=== PATIENT | female | born 1980 | race Caucasian/White ===

== ENCOUNTER 2019-12-16 10:18 | Outpatient (CLI) | payer OTHER, MEDICAID, SELFPAY ==
--- NOTE | ~2019-12-16 | XR_ITS ---
XR abdomen/kub 1V DATE: 12/16/2019 10:44 INDICATION: Left kidney stone follow-up TECHNIQUE: AP projection, 2 views COMPARISON: 07/09/2018 KUB FINDINGS: Again noted is a pinpoint faint calcification overlying the mid left kidney. This appears s table since 07/09/2018. No visceromegaly is evident. No bowel obstruction. IMPRESSION: Pinpoint nonobstructing mid left renal calculus Reviewed, dictated and finalized at [facility]. Reviewed, dictated and finalized at [facility].
== END 2019-12-16 10:19 | disposition home or self-care (01) ==
LOC: ANHIMG 10:27
PROVIDERS: Visit Provider Nurse Practitioner Adult Health
DX: N20.0 Calculus of kidney (principal)
CPT/HCPCS: 74018

== ENCOUNTER 2021-07-21 09:46 | Outpatient (CLI) | payer BC, MEDICAID, SELFPAY ==
--- NOTE | ~2021-07-21 | XR_ITS ---
XR abdomen/kub 1V 07/21/2021 10:05 Indication: Left kidney stone Procedure: KUB Comparison: 12/16/2019 and 07/09/2018 Findings: There is a punctate left renal stone which is unchanged. No definite right renal stones. Jluis wel gas pattern is nonobstructive. Moderate colonic fecal loading. Lung bases are unremarkable. Impression: 1: Punctate left nephrolithiasis unchanged. Reviewed, dictated and finalized at location [facility]. TRAINER Impression: 1: Punctate left nephrolithiasis unchanged.
== END 2021-07-21 09:47 | disposition home or self-care (01) ==
LOC: ANHIMG 09:55
PROVIDERS: PCP Nurse Practitioner; Visit Provider Nurse Practitioner Adult Health
DX: N20.0 Calculus of kidney (principal)
CPT/HCPCS: 74018